=== PATIENT | female | born 1995 | race African-American/Black ===

== ENCOUNTER 2016-10-15 16:39 | Emergency (ER) | payer MEDICAID ==
[2016-10-15] MEDS ORDERED: IBUPROFEN 800 MG TABLET PO ONE (17:22)
--- NOTE | 2016-10-15 17:23 | ER Document Report ---
HPI - HPI Patient complains to provider of: hand injury Onset: This morning Onset/Duration: Sudden Quality of pain: Sharp Pain Level: 5 Context: Patient states that she punched a wall today with her right hand. Patient complains of right hand and wrist pain since then. Patient is right-hand dominant. Associated Symptoms: Other - Right hand injury Exacerbated by: Movement Relieved by: Denies Similar symptoms previously: No Recently seen / treated by doctor: No - ROS ROS below otherwise negative: Yes Systems Reviewed and Negative: Yes All other systems reviewed and negative - NEURO Neurology: DENIES: Weakness - REPRODUCTIVE Reproductive: DENIES: : - MUSCULOSKELETAL Musculoskeletal: REPORTS: Extremity pain - Right hand and wrist tendernes - DERM Skin Color: Normal Skin Problems: None Past Medical History - General Information source: Patient - Social History Smoking Status: Never Smoker Frequency of alcohol use: None Drug Abuse: None Occupation: [employer] Family History: Hypertension, Other - lupus Patient has suicidal ideation: No Patient has homicidal ideation: No - Medical History Medical History: Negative Renal/ Medical History: Denies: Hx Peritoneal Dialysis Surgical Hx: Negative - Immunizations Immunizations up to date: Yes Hx Diphtheria, Pertussis, Tetanus Vaccination: Yes Vertical Provider Document - CONSTITUTIONAL Agree With Documented VS: Yes Exam Limitations: No Limitations General Appearance: WD/WN, No Apparent Distress - INFECTION CONTROL TRAVEL OUTSIDE OF THE [place] IN LAST 30 DAYS: No - HEENT HEENT: Atraumatic, Normocephalic - NECK Neck: Normal Inspection - RESPIRATORY Respiratory: No Respiratory Distress O2 Sat by Pulse Oximetry: 96 - CARDIOVASCULAR Pulses: Normal: Radial - MUSCULOSKELETAL/EXTREMETIES Musculoskeletal/Extremeties: MAEW, Tender - Tenderness over right second through fifth metacarpals, no deformity noted. Patient with generalized right wrist tenderness, No Edema. negative: Eccymosis - NEURO Level of Consciousness: Awake, Alert, Appropriate Motor/Sensory: No Motor Deficit - DERM Integumentary: Warm, Dry, No Rash Course - Vital Signs Vital signs: Temp Pulse Resp BP Pulse Ox 98.7 F 16 L 16 107/77 96 10/15/16 16:42 10/15/16 16:42 10/15/16 16:42 10/15/16 16:42 10/15/16 16:42 - Diagnostic Test Radiology reviewed: Reports reviewed Procedures - Immobilization Right Wrist Pre-Proc Neuro Vasc Exam: Normal Immobilizer type: Cock-up Performed by: PCT Post-Proc Neuro Vasc Exam: Normal Alignment checked and good: Yes Discharge - Discharge Clinical Impression: Sprain of hand, right Qualifiers: Encounter type: initial encounter Qualified Code(s): S63.91XA - Sprain of unspecified part of right wrist and hand, initial encounter Sprain of wrist, right Qualifiers: Encounter type: initial encounter Qualified Code(s): S63.501A - Unspecified sprain of right wrist, initial encounter Condition: Stable Disposition: HOME, SELF-CARE Instructions: Sprain ([facility]), Wrist Sprain ([facility]), Ice & Elevation ([facility]), Oral Narcotic Medication ([facility]), Temporary Splint ([facility]) Additional Instructions: Return immediately for any new or worsening symptoms Followup with your primary care provider, call tomorrow to make a followup appointment Follow up with orthopedic Dr. for any continued pain or problems Prescriptions: Acetaminophen with Codeine [Acetaminophen-Cod #3 Tablet] 1 each PO Q6 PRN #15 tablet PRN Reason: Forms: Return to Work Referrals: AUSTIN DOMINGUEZ MD [Primary Care Provider] - Follow up as needed [facility] [Provider Group] - Follow up as needed
[2016-10-15 18:40] VITALS: BP 114/60
== END 2016-10-15 18:39 | disposition home or self-care (01) ==
LOC: ER 16:39
DX: S63.91XA Sprain of unspecified part of right wrist and hand, initial encounter (principal); W22.09XA Striking against other stationary object, initial encounter
CPT/HCPCS: 99283; 73130; L3984; J3490

== ENCOUNTER 2016-12-07 09:43 | Emergency (ER) | payer MEDICAID ==
[2016-12-07 09:51] VITALS: BP 114/73
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
--- NOTE | 2016-12-07 10:38 | RADIOLOGY REPORT (SQ) ---
EXAM DESCRIPTION: RIBS LEFT W/PA CHEST COMPLETED DATE/TIME: 12/07/2016 10:29 am REASON FOR STUDY: injury COMPARISON: None. TECHNIQUE: Frontal view of the chest and additional views of the left ribs acquired. NUMBER OF VIEWS: Three views LIMITATIONS: None FINDINGS: FRONTAL CXR: No acute consolidations or pleural effusions. No pneumothorax is seen. RIBS: No rib fracture dislocation is identified. OTHER: No other significant finding. IMPRESSION: NO PNEUMOTHORAX. NO DISPLACED RIB FRACTURES. COMMENT: SITE OF TRAUMA/COMPLAINT MARKED/STAMP COMPLETED: Yes TECHNICAL DOCUMENTATION: JOB ID: [id number] [employer]- All Rights Reserved
== END 2016-12-07 10:47 | disposition home or self-care (01) ==
LOC: ER 09:43
DX: S20.212A Contusion of left front wall of thorax, initial encounter (principal); R07.81 Pleurodynia; R06.02 Shortness of breath; X58.XXXA Exposure to other specified factors, initial encounter
CPT/HCPCS: 99283

== ENCOUNTER 2017-06-03 15:09 | Emergency (ER) | payer MEDICAID ==
[2017-06-03 15:25] VITALS: BP 113/73
== END 2017-06-03 16:42 | disposition left against medical advice (07) ==
LOC: ER 15:09
DX: Z53.21 Procedure and treatment not carried out due to patient leaving prior to being seen by health care provider (principal)

== ENCOUNTER 2018-01-07 14:12 | Emergency (ER) | payer SELFPAY ==
[2018-01-07] MEDS ORDERED: NORMAL SALINE 1000 ML 1,000 ML IV ONE (14:44)
[2018-01-07] MEDS ORDERED: ACETAMINOPHEN 325 MG TABLET PO ONE (14:46)
--- NOTE | 2018-01-07 14:46 | ER Document Report ---
ED Medical Screen (RME) - General Chief Complaint: Flu Symptoms Stated Complaint: COUGH Time Seen by Provider: 01/07/18 14:26 Mode of Arrival: Ambulatory Information source: Patient Notes: Patient presents complaining of body aches sore throat and left lateral side pain that started yesterday. Patient denies any cough or cold symptoms. Patient denies any vomiting or diarrhea. Patient denies any urinary complaints. Patient is currently 27 weeks . Patient denies vaginal bleeding or discharge. Patient does report being told she has placenta previa. Patient has not established care since relocating to this area 2 weeks ago. I have greeted and performed a rapid initial assessment of this patient. A comprehensive ED assessment and evaluation of the patient, analysis of test results and completion of the medical decision making process will be conducted by additional ED providers. TRAVEL OUTSIDE OF THE [place] IN LAST 30 DAYS: No - Related Data Allergies/Adverse Reactions: No Known Allergies Allergy (Verified 01/07/18 14:15) Past Medical History - Social History Chew tobacco use (# tins/day): No Frequency of alcohol use: None Drug Abuse: None - Past Medical History Cardiac Medical History: Reports: Hx Hypertension Renal/ Medical History: Denies: Hx Peritoneal Dialysis - Immunizations Immunizations up to date: Yes Hx Diphtheria, Pertussis, Tetanus Vaccination: Yes Physical Exam - Vital signs Vitals: Temp Pulse Resp BP Pulse Ox 99.6 F 126 H 18 118/60 98 01/07/18 14:23 01/07/18 14:23 01/07/18 14:23 01/07/18 14:23 01/07/18 14:23 - Cardiovascular Rhythm: Tachycardia Heart sounds: S1 appreciated, S2 appreciated Murmur: No Course - Vital Signs Vital signs: Temp Pulse Resp BP Pulse Ox 99.6 F 126 H 18 118/60 98 01/07/18 14:23 01/07/18 14:23 01/07/18 14:23 01/07/18 14:23 01/07/18 14:23
[2018-01-07 15:06] LABS: APPEARANCE,URINE CLEAR; BILIRUBIN,URINE NEGATIVE (NEGATIVE); COLOR,URINE YELLOW; GLUCOSE, URINE NEGATIVE (NEGATIVE); KETONES,URINE 80 mg/dL (NEGATIVE); LEUKOCYTE ESTERASE,URINE NEGATIVE (NEGATIVE); NITRITE,URINE NEGATIVE (NEGATIVE); PROTEIN,URINE NEGATIVE (NEGATIVE); URINE SPECIFIC GRAVITY 1.021
--- NOTE | 2018-01-07 15:13 | ER Document Report ---
ED Flu Like - General Chief Complaint: Flu Symptoms Stated Complaint: COUGH Time Seen by Provider: 01/07/18 14:26 Mode of Arrival: Ambulatory Information source: Patient Notes: Chief complaint: Flulike symptoms History of complain:( obtained from----patient) 22 years old female who is 27 weeks , second , presents today since this morning having generalized body aches and pains so throat and runny nose. Denies any headache earache. Denies any neck pain neck stiffness. Denies any cough shortness of breath. Denies any nausea vomiting. Denies any dysuria frequency or urgency. Denies any diarrhea. Onset: As above Duration: Gradual Severity: Moderate Quality: Sharp Context: As above Exacerbating factor and relieving factors: As above REVIEW OF SYSTEMS: CONSTITUTIONAL : Denies fever, chills, or sweats. Denies recent illness. EENT: Denies eye, ear, throat, or mouth pain or symptoms. Denies nasal or sinus congestion or discharge. Denies throat, tongue, or mouth swelling or difficulty swallowing. CARDIOVASCULAR: Denies chest pain. Denies palpitations or racing or irregular heart beat. Denies ankle edema. RESPIRATORY: Denies cough, cold, or chest congestion. Denies shortness of breath, difficulty breathing, or wheezing. GASTROINTESTINAL: Denies distention. Denies nausea, vomiting, or diarrhea. Denies blood in vomitus, stools, or per rectum. Denies black, tarry stools. Denies constipation. GENITOURINARY: Denies difficulty urinating, painful urination, burning, frequency, blood in urine, or discharge. FEMALE GENITOURINARY: Denies vaginal bleeding, heavy or abnormal periods, irregular periods. Denies vaginal discharge or odor. MUSCULOSKELETAL: Denies back or neck pain or stiffness. Denies joint pain or swelling. SKIN: Denies rash, lesions or sores. HEMATOLOGIC : Denies easy bruising or bleeding. LYMPHATIC: Denies swollen, enlarged glands. NEUROLOGICAL: Denies confusion or altered mental status. Denies passing out or loss of consciousness. Denies dizziness or lightheadedness. Denies headache. Denies weakness or paralysis or loss of use of either side. Denies problems with gait or speech. Denies sensory loss, numbness, or tingling. Denies seizures. PSYCHIATRIC: Denies anxiety or stress. Denies depression, suicidal ideation, or homicidal ideation. ALL OTHER SYSTEMS REVIEWED AND NEGATIVE. PHYSICAL EXAMINATION: GENERAL: Well-appearing, well-nourished and in no acute distress. HEAD: Atraumatic, normocephalic. EYES: Pupils equal round and reactive to light, extraocular movements intact, conjunctiva are normal. ENT: Nares patent, oropharynx clear without exudates. Moist mucous membranes. NECK: Normal range of motion, supple without lymphadenopathy LUNGS: Breath sounds clear to auscultation bilaterally and equal. No wheezes rales or rhonchi. HEART: Regular rate and rhythm without murmurs ABDOMEN: Soft, nontender, nondistended abdomen. No guarding, no rebound. No masses appreciated. Examination of genitals-deferred Musculoskeletal: Normal range of motion, no pitting or edema. No cyanosis. NEUROLOGICAL: Cranial nerves grossly intact. Normal speech, normal gait. Normal sensory, motor exams PSYCH: Normal mood, normal affect. SKIN: Warm, Dry, normal turgor, no rashes or lesions noted. Dictation was performed using [email or web address] voice recognition software TRAVEL OUTSIDE OF THE [place] IN LAST 30 DAYS: No - HPI Patient complains to provider of: Dictated - Related Data Allergies/Adverse Reactions: No Known Allergies Allergy (Verified 01/07/18 14:15) Past Medical History - General Information source: Patient - Social History Smoking Status: Never Smoker Cigarette use (# per day): No Chew tobacco use (# tins/day): No Smoking Education Provided: No Frequency of alcohol use: None Drug Abuse: None Lives with: Family Family History: Reviewed & Not Pertinent, Hypertension, Other - lupus Patient has suicidal ideation: No Patient has homicidal ideation: No - Past Medical History Cardiac Medical History: Reports: Hx Hypertension Renal/ Medical History: Denies: Hx Peritoneal Dialysis - Immunizations Immunizations up to date: Yes Hx Diphtheria, Pertussis, Tetanus Vaccination: Yes Review of Systems - Review of Systems Notes: Dictated Physical Exam - Vital signs Vitals: Temp Pulse Resp BP Pulse Ox 99.6 F 126 H 18 118/60 98 01/07/18 14:23 01/07/18 14:23 01/07/18 14:23 01/07/18 14:23 01/07/18 14:23 - Notes Notes: Dictated Course - Re-evaluation Re-evalutation: 01/07/18 16:11 Given IV fluid 01/07/18 16:11 With clinical improvement she was discharged home - Vital Signs Vital signs: Temp Pulse Resp BP Pulse Ox 99.6 F 126 H 18 118/60 98 01/07/18 14:23 01/07/18 14:23 01/07/18 14:23 01/07/18 14:23 01/07/18 14:23 - Laboratory Result Diagrams: 01/07/18 15:15 01/07/18 15:15 Laboratory results interpreted by me: 01/07/18 01/07/18 01/07/18 14:55 15:15 15:15 Hgb 11.6 L Hct 33.4 L Seg Neutrophils % 86.7 H Lymphocytes % 5.1 L Absolute Lymphocytes 0.3 L Sodium 136.6 L Carbon Dioxide 21 L Creatinine 0.45 L Glucose 68 L Albumin 3.4 L Urine Ketones 80 H Urine Urobilinogen 2.0 H Urine Ascorbic Acid 40 H Discharge - Discharge Clinical Impression: Viral syndrome, Sore throat (viral), Dehydration Condition: Fair Disposition: HOME, SELF-CARE Instructions: Acetaminophen, Fever ([facility]), Dehydration ([facility])
[2018-01-07 15:34] LABS: ABSOLUTE LYMPHOCYTES (AUTO) 0.3 10^3/uL (0.5-4.7); ABSOLUTE MONOCYTES (AUTO) 0.5 10^3/uL (0.1-1.4); ABSOLUTE NEUT (AUTO) 5.6 10^3/uL (1.7-8.2); BASOPHILS % (AUTO) 0.4 % (0-2); EOSINOPHILS % (AUTO) 0.2 % (0-6); HEMATOCRIT 33.4 % (36.0-47.0); HEMOGLOBIN 11.6 g/dL (12.0-15.5); LYMPHOCYTES % (AUTO) 5.1 % (13-45); MEAN CORPUSCULAR HEMOGLOBIN 30.7 pg (27.0-33.4); MEAN CORPUSCULAR HGB CONC 34.7 g/dL (32.0-36.0); MEAN CORPUSCULAR VOLUME 89 fl (80-97); MONOCYTES % (AUTO) 7.6 % (3-13); PLATELET COUNT 249 10^3/uL (150-450); RED BLOOD COUNT 3.77 10^6/uL (3.72-5.28); RED CELL DISTRIBUTION WIDTH 13.6 % (11.5-14.0); SEGMENTED NEUTROPHILS % (AUTO) 86.7 % (42-78); TOTAL CELLS COUNTED % (AUTO) 100 %; WHITE BLOOD COUNT 6.5 10^3/uL (4.0-10.5)
[2018-01-07 16:00] LABS: ALANINE AMINOTRANSFERASE 41 U/L (9-52); ALBUMIN 3.4 g/dL (3.5-5.0); ALKALINE PHOSPHATASE 64 U/L (38-126); ANION GAP 12 (5-19); ASPARTATE AMINO TRANSFERASE 32 U/L (14-36); BILIRUBIN,DIRECT 0.3 mg/dL (0.0-0.4); BILIRUBIN,TOTAL 0.3 mg/dL (0.2-1.3); BLOOD UREA NITROGEN 7 mg/dL (7-20); CALCIUM 8.8 mg/dL (8.4-10.2); CARBON DIOXIDE 21 mmol/L (22-30); CHLORIDE 104 mmol/L (98-107); GLUCOSE 68 mg/dL (75-110); POTASSIUM 3.9 mmol/L (3.6-5.0); SODIUM 136.6 mmol/L (137-145); TOTAL PROTEIN 6.8 g/dL (6.3-8.2)
[2018-01-07 16:21] VITALS: BP 108/61
== END 2018-01-07 16:21 | disposition home or self-care (01) ==
LOC: ER 14:12
DX: O99.512 Diseases of the respiratory system complicating pregnancy, second trimester (principal); J02.8 Acute pharyngitis due to other specified organisms; B97.89 Other viral agents as the cause of diseases classified elsewhere; O26.892 Other specified pregnancy related conditions, second trimester; R05 Cough; R09.89 Other specified symptoms and signs involving the circulatory and respiratory systems; O99.282 Endocrine, nutritional and metabolic diseases complicating pregnancy, second trimester; E86.0 Dehydration; O16.2 Unspecified maternal hypertension, second trimester; Z3A.27 27 weeks gestation of pregnancy
CPT/HCPCS: 99283; 96360; 36415; 87070; 87880; 85025; 80053; 81001; J7030

== ENCOUNTER 2018-04-12 18:07 | Inpatient (IN) | payer MEDICAID ==
[2018-04-12 18:43] LABS: APPEARANCE,URINE SLIGHTLY-CLOUDY; BILIRUBIN,URINE NEGATIVE (NEGATIVE); COLOR,URINE YELLOW; GLUCOSE, URINE NEGATIVE (NEGATIVE); KETONES,URINE NEGATIVE (NEGATIVE); LEUKOCYTE ESTERASE,URINE TRACE (NEGATIVE); NITRITE,URINE NEGATIVE (NEGATIVE); PROTEIN,URINE 30 mg/dL (NEGATIVE); URINE SPECIFIC GRAVITY 1.023
[2018-04-12 19:03] LABS: URINE AMPHETAMINES SCREEN NEGATIVE; URINE BARBITURATES SCREEN NEGATIVE; URINE BENZODIAZEPINES SCREEN NEGATIVE; URINE COCAINE SCREEN NEGATIVE; URINE MARIJUANA (THC) SCREEN NEGATIVE; URINE METHADONE SCREEN NEGATIVE; URINE PHENCYCLIDINE SCREEN NEGATIVE
[2018-04-12] MEDS ORDERED: RINGERS SOLUTION,LACTATED 1,000 ML IV PRN (19:36)
[2018-04-12] MEDS ORDERED: FENTANYL CITRATE INJ/PF 100 MCG/2 ML AMPUL ONE (20:00)
[2018-04-12] MEDS ORDERED: EPHEDRINE SULFATE INJ 50 MG/1 ML AMPULE ONE (20:00)
[2018-04-12] MEDS ORDERED: PHENYLEPHRINE HCL INJ/PF 10 MG/1 ML SDV ONE (20:00)
[2018-04-12] MEDS ORDERED: FENTANYL/BUPIVACAINE/NS/PF 300 MCG/150 ML RTUINJ EPI ONE (20:01)
[2018-04-12] MEDS ORDERED: BUPIVACAINE HCL 0.5 % INJ/PF 30 ML SDV ONE (20:01)
[2018-04-12 20:18] LABS: ABSOLUTE LYMPHOCYTES (AUTO) 1.3 10^3/uL (0.5-4.7); ABSOLUTE MONOCYTES (AUTO) 0.8 10^3/uL (0.1-1.4); ABSOLUTE NEUT (AUTO) 4.3 10^3/uL (1.7-8.2); BASOPHILS % (AUTO) 0.6 % (0-2); EOSINOPHILS % (AUTO) 0.4 % (0-6); HEMATOCRIT 38.5 % (36.0-47.0); HEMOGLOBIN 13.1 g/dL (12.0-15.5); MEAN CORPUSCULAR HGB CONC 33.9 g/dL (32.0-36.0); MEAN CORPUSCULAR VOLUME 89 fl (80-97); MONOCYTES % (AUTO) 12.2 % (3-13); PLATELET COUNT 253 10^3/uL (150-450); RED BLOOD COUNT 4.35 10^6/uL (3.72-5.28); RED CELL DISTRIBUTION WIDTH 14.3 % (11.5-14.0); SEGMENTED NEUTROPHILS % (AUTO) 66.8 % (42-78); TOTAL CELLS COUNTED % (AUTO) 100 %; WHITE BLOOD COUNT 6.4 10^3/uL (4.0-10.5)
[2018-04-12 20:32] LABS: ALANINE AMINOTRANSFERASE 27 U/L (9-52); ALBUMIN 3.5 g/dL (3.5-5.0); ALKALINE PHOSPHATASE 95 U/L (38-126); ANION GAP 6 (5-19); ASPARTATE AMINO TRANSFERASE 14 U/L (14-36); BILIRUBIN,DIRECT 0.2 mg/dL (0.0-0.4); BILIRUBIN,TOTAL 0.5 mg/dL (0.2-1.3); BLOOD UREA NITROGEN 11 mg/dL (7-20); CALCIUM 9.9 mg/dL (8.4-10.2); CARBON DIOXIDE 26 mmol/L (22-30); CHLORIDE 105 mmol/L (98-107); GLUCOSE 88 mg/dL (75-110); POTASSIUM 4.9 mmol/L (3.6-5.0); SODIUM 137.2 mmol/L (137-145); TOTAL PROTEIN 6.9 g/dL (6.3-8.2)
[2018-04-12] MEDS ORDERED: LIDOCAINE 1% INJ-PF (10 MG/ML) 30 ML SDV ONE (22:46)
[2018-04-12] MEDS ORDERED: OXYTOCIN/NORMAL SALINE 20 UNIT/1,000 ML RTUINJ ONE (22:46)
[2018-04-12] MEDS ORDERED: MISOPROSTOL 0.2 MG TABLET ONE (22:46)
[2018-04-12] MEDS ORDERED: OXYTOCIN 10 UNIT/ML VIAL ONE (22:46)
--- NOTE | 2018-04-12 23:01 | Admission Physical ---
Datetime Report Generated by CPN: 04/12/2018 23:00 CURRENT ADMISSION Chief Complaint: Uterine Contractions Indication for Induction: Not Applicable Admit Impression : Term, Intrauterine ; Active Labor; Intact Membranes Admit Plan: Admit to Unit; Initiate Labor Protocol ALLERGIES Medication Allergies: No Medication Allergies: No Known Allergies (01/07/2018) OBSTETRICAL HISTORY EDC: 04/08/2018 00:00 : 2 Para: 1 Term: 1 : 0 SAB: 0 IAB: 0 Ectopic: 0 Livin Cesareans: 0 VBACs: 0 Multiple Births: 0 Gestational Diabetes: No Rh Sensitization: No Incompetent Cervix: No KINDRA: No Infertility: No ART Treatment: No Uterine Anomaly: No IUGR: No Hx Previous C/S: No Macrosomia: No Hx Loss/Stillborn: No PIH: No Hx : No Placenta Previa/Abruption: No Depression/PP Depression: No PTL/PROM: No Post Hemorrhage: No Current Procedures: Ultrasound Obstetrical History Comments: G1- G2- current SEE RECORDS Alcohol: No Marijuana : No Cocaine: No Other Illicit Drugs: No Cigarettes: Never Smoker. 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: No Heart Disease: No Hosp/Surgery: No Autoimmune Disorder: No Anesthetic Complications: No Kidney Disease: No Abnormal Pap Smear: No Neuro/Epilepsy: No Psychiatric Disorders: No Other Medical Diseases: No Hepatitis/Liver Disease: No Significant Family History: No Varicosities/Phlebitis: No Trauma/Violence : No Thyroid Dysfunction: No INFECTIOUS HISTORY Gonorrhea: No Genital Herpes: No Chlamydia: Yes Tuberculosis: No Syphilis: No Hepatitis: No HIV/AIDS Exposure: No Rash or Viral Illness: No HPV: No Infectious History Comments: PHYSICAL EXAM General: Normal HEENT: Normal Neurologic: Normal Heart: Normal Lungs: Normal Abdomen: Normal Genitourinary Exam: Normal Extremities: Normal Pelvic Type: Adequate Vital Signs: Reviewed; Within Normal Limits VAGINAL EXAM Dilatation: 10 Effacement: 100 Station: 0 Contraction Comments: q 3 min MEMBRANES Membranes: Ruptured FETUS A EGA: 40.4 Monitoring: External US FHR- Baseline: 135 Variability: Moderate 6-25bpm Accelerations: 15X15 Decelerations: None Presentation: Vertex PLANS FOR LABOR AND DELIVERY Labor and Delivery: None Pain Management: Epidural Feeding Preference: Breast Benefit of Breast Feed Discussed: Yes Circumcision: Yes INFORMED CONSENT Signature: with User ID: [email or web address]
[2018-04-13] MEDS ORDERED: OXYTOCIN/NORMAL SALINE 20 UNIT/1,000 ML RTUINJ IV PRN (00:25)
[2018-04-13] MEDS ORDERED: HYDROCODONE/ACETAMINOPHEN 5-325 MG TABLET PO PRN (00:25)
[2018-04-13] MEDS ORDERED: MEASLES,MUMPS&RUBELLA VACC/PF 0.5 ML VIAL SUBCUT PRN (00:25)
[2018-04-13] MEDS ORDERED: BENZOCAINE/MENTHOL AEROSOL SPRAY 56 ML TOP PRN (00:25)
[2018-04-13] MEDS ORDERED: DIBUCAINE 1% OINTMENT 28 GM TP PRN (00:25)
[2018-04-13] MEDS ORDERED: ZOLPIDEM TARTRATE 5 MG TABLET PO PRN (00:25)
[2018-04-13] MEDS ORDERED: DIPH/PERTUSS(ACELL)/TETANUS VAC/PF 0.5 ML SYR (>=10YO) IM PRN (00:25)
[2018-04-13] MEDS ORDERED: DIPHENHYDRAMINE HCL 25 MG CAPSULE PO PRN (00:32)
[2018-04-13] MEDS ORDERED: PROMETHAZINE HCL 25 MG TABLET PO PRN (00:32)
[2018-04-13] MEDS ORDERED: ONDANSETRON HCL 8 MG TABLET PO PRN (00:32)
[2018-04-13] MEDS: ACETAMINOPHEN WITH CODEINE #3 TABLET PO PRN ×4 (02:38→23:46)
[2018-04-13] MEDS: IBUPROFEN 800 MG TABLET PO SCH ×3 (05:45→21:08)
--- NOTE | 2018-04-13 09:37 | PDOC PROGRESS REPORT ---
Subjective-OB Progress Note for:: 04/13/18 Subjective: pp Day #1, doing well, no complaints, , O+, rubella Immune Physical Exam (OB) Vital Signs: Temp Pulse Resp BP Pulse Ox 98.1 F 73 18 108/49 L 99 04/13/18 07:55 04/13/18 07:55 04/13/18 07:55 04/13/18 07:55 04/13/18 07:55 Intake & Output 04/12/18 04/13/18 04/14/18 06:59 06:59 06:59 Weight 75.7 kg - General General Appearance: Appears well, Alert In distress: None - PIH/Pre-Eclampsia DTR's: 2 + Clonus: Negative Headache: Absent Epigastric Pain: No Visual Changes: No - Lochia Lochia Amount: Scant < 10 ml Lochia Color: Rubra/Red - Abdomen Description: Soft, Flat Hernia Present: No Fundal Description: Firm, Midline Fundal Height: u/u - u/2 - Respiratory Respiratory Status: No respiratory distress - Abdominal Inspection: Normal Distension: No distension - Genitourinary Genitourinary Note: voiding - Extremities Upper extremity: Normal inspection Lower extremities: Normal inspection - Neurological Cognition: Normal Orientation: AAOx4 - Psychological Associated symptoms: Normal affect, Normal mood - Skin Skin Temperature: Warm Skin Moisture: Dry Skin Color: Normal Objective-Diagnostic Laboratory: 04/12/18 20:05 04/12/18 20:05 04/12/18 04/12/18 04/12/18 18:12 20:05 20:05 WBC 6.4 RBC 4.35 Hgb 13.1 Hct 38.5 MCV 89 MCH 30.0 MCHC 33.9 RDW 14.3 H Plt Count 253 Seg Neutrophils % 66.8 Lymphocytes % 20.0 Monocytes % 12.2 Eosinophils % 0.4 Basophils % 0.6 Absolute Neutrophils 4.3 Absolute Lymphocytes 1.3 Absolute Monocytes 0.8 Absolute Eosinophils 0.0 Absolute Basophils 0.0 Sodium 137.2 Potassium 4.9 Chloride 105 Carbon Dioxide 26 Anion Gap 6 BUN 11 Creatinine 0.73 Est GFR ( Amer) > 60 Est GFR (Non-Af Amer) > 60 Glucose 88 Calcium 9.9 Total Bilirubin 0.5 AST 14 ALT 27 Alkaline Phosphatase 95 Total Protein 6.9 Albumin 3.5 Urine Color YELLOW Urine Appearance SLIGHTLY-CLOUDY Urine pH 6.0 Ur Specific Drain 1.023 Urine Protein 30 H Urine Glucose (UA) NEGATIVE Urine Ketones NEGATIVE Urine Blood NEGATIVE Urine Nitrite NEGATIVE Ur Leukocyte Esterase TRACE H Blood Type Antibody Screen 04/12/18 20:05 WBC RBC Hgb Hct MCV MCH MCHC RDW Plt Count Seg Neutrophils % Lymphocytes % Monocytes % Eosinophils % Basophils % Absolute Neutrophils Absolute Lymphocytes Absolute Monocytes Absolute Eosinophils Absolute Basophils Sodium Potassium Chloride Carbon Dioxide Anion Gap BUN Creatinine Est GFR ( Amer) Est GFR (Non-Af Amer) Glucose Calcium Total Bilirubin AST ALT Alkaline Phosphatase Total Protein Albumin Urine Color Urine Appearance Urine pH Ur Specific Drain Urine Protein Urine Glucose (UA) Urine Ketones Urine Blood Urine Nitrite Ur Leukocyte Esterase Blood Type O POSITIVE Antibody Screen NEGATIVE Assessment and Plan(PN) - Assessment and Plan (1) (normal spontaneous vaginal delivery) Is this a current diagnosis for this admission?: Yes (2) Normal course Is this a current diagnosis for this admission?: Yes - Time Spent with Patient Time with patient: Less than 15 minutes Medications reviewed and adjusted accordingly: Yes - Disposition Anticipated Discharge: Home Within: within 24 hours
[2018-04-13] MEDS: SENNOSIDES/DOCUSATE 8.6-50 MG 1 EACH TABLET PO SCH (10:21)
[2018-04-13] MEDS: PRENATAL VITAMIN W DHA CAPSULE PO SCH (10:21)
[2018-04-13] MEDS: DOCUSATE SODIUM 100 MG CAPSULE PO SCH ×2 (10:21→17:33)
[2018-04-13] MEDS: FERROUS SULFATE 325 MG TABLET PO SCH ×2 (10:22→17:33)
[2018-04-14] MEDS: IBUPROFEN 800 MG TABLET PO SCH ×2 (05:18→14:29)
[2018-04-14 07:49] LABS: HEMATOCRIT 36.9 % (36.0-47.0); HEMOGLOBIN 12.6 g/dL (12.0-15.5); MEAN CORPUSCULAR HEMOGLOBIN 30.1 pg (27.0-33.4); MEAN CORPUSCULAR HGB CONC 34.2 g/dL (32.0-36.0); MEAN CORPUSCULAR VOLUME 88 fl (80-97); PLATELET COUNT 205 10^3/uL (150-450); RED BLOOD COUNT 4.19 10^6/uL (3.72-5.28); RED CELL DISTRIBUTION WIDTH 14.6 % (11.5-14.0)
[2018-04-14 08:17] VITALS: BP 108/58
[2018-04-14] MEDS: ACETAMINOPHEN WITH CODEINE #3 TABLET PO PRN (08:45)
[2018-04-14] MEDS: PRENATAL VITAMIN W DHA CAPSULE PO SCH (09:20)
[2018-04-14] MEDS: SENNOSIDES/DOCUSATE 8.6-50 MG 1 EACH TABLET PO SCH (09:20)
[2018-04-14] MEDS: FERROUS SULFATE 325 MG TABLET PO SCH ×2 (09:20→17:20)
[2018-04-14] MEDS: DOCUSATE SODIUM 100 MG CAPSULE PO SCH ×2 (09:20→17:20)
--- NOTE | 2018-04-14 11:10 | PDOC DISCHARGE SUMMARY ---
Final Diagnosis Discharge Date: 04/14/18 - Final Diagnosis (1) Perineal laceration during delivery Is this a current diagnosis for this admission?: Yes (2) (normal spontaneous vaginal delivery) Is this a current diagnosis for this admission?: Yes (3) Normal course Is this a current diagnosis for this admission?: Yes (4) High vaginal laceration during delivery Is this a current diagnosis for this admission?: Yes Discharge Data - Discharge Medication Prescriptions: Ibuprofen [Motrin 800 mg Tablet] 800 mg PO Q8HP PRN #60 tablet PRN Reason: Abdominal Cramping Vit/Dha [ Multi + Dha Capsule] 1 cap PO DAILY #90 capsule Home Medications: Ibuprofen [Motrin 800 mg Tablet] 800 mg PO Q8HP PRN #60 tablet 04/14/18 Vit/Dha [ Multi + Dha Capsule] 1 cap PO DAILY #90 capsule 04/14 Reason(s) for Admission: Onset of Labor Procedures: NST, Ultrasound Intrapartum Procedure(s): Spontaneous Vaginal Delivery Complication(s): Laceration-Vaginal, Laceration-Perineal Laceration-Degree: 1st - Diagnosis Test Laboratory: Temp Pulse Resp BP Pulse Ox 98.9 F 72 16 108/58 L 98 04/14/18 07:58 04/14/18 07:58 04/14/18 07:58 04/14/18 07:39 04/14/18 07:58 04/12/18 04/12/18 04/14/18 18:12 20:05 07:16 RBC 4.35 4.19 Hgb 13.1 12.6 Hct 38.5 36.9 Urine Opiates Screen NEGATIVE - Discharge information/Instructions Discharge Activity: Activity As Tolerated, Balance Activity w/Rest, No Lifting Over 10 Pounds, Pelvic Rest, Slowly Increase Activity, No tub bath, Walk Frequently Discharge Diet: Regular Disposition: HOME, SELF-CARE Follow up with: [facility] in: 4, Weeks
--- NOTE | 2018-04-21 14:08 | Delivery Summary ---
Del Sum A-C Datetime Report Generated by CPN: 04/21/2018 14:07 DELIVERY PERSONNEL DELIVERY PERSONNEL: [id number] Delivery Doctor:: Abdelrahman Finney MD Labor and Delivery Nurse:: Ro Gramajo RN Labor and Delivery Nurse:: Shy Sotelo RN Computer Systems Software Engineer/LIVERY CAR DRIVER: Shana Ryan, RAVELER MATERNAL INFORMATION Delivery Anesthesia: Epidural Medications During Delivery: Lidocaine Medications After Delivery: Pitocin Bolus-Please Comment Estimated Blood Loss (ml): 100 Maternal Complications: None Provider Comments: Pt C_P. Head delivered OA then nuchal reduced. Anterior and posterior shoulder delivered followed by rest of body. Baby placed on mom's abdomen. After 1 min, cord clamped x 2 and cut by FOB. Placenta delivered intact with 3VC. Laceration repaired as above. LABOR SUMMARY EDC: 04/08/2018 00:00 No. Babies in Womb: 1 Attempted: No Labor Anesthesia: Epidural LABOR INFORMATION Reason for Induction: Not Applicable Onset of Labor: 04/12/2018 19:25 Complete Dilatation: 04/12/2018 23:35 Group B Beta Strep: negative Antibiotics # of Doses: 0 Antibiotics Time of Last Dose: n/a Steroids Given: None Steroids Given: None Reason Steroids Not Administered: Not Applicable Reason Steroids Not Administered: Not Applicable MEMBRANES Membranes Rupture Method: Spontaneous Rupture of Membranes: 04/12/2018 22:36 Length of Rupture (hr): 1.15 Amniotic Fluid Color: Clear Amniotic Fluid Amount: Moderate Amniotic Fluid Odor: Normal STAGES OF LABOR Stage 1 hr: 4 Stage 1 min: 10 Stage 2 hr: 0 Stage 2 min: 10 Stage 3 hr: 24 Stage 3 min: 6 Total Time in Labor hr: 28 Total Time in Labor min: 26 VAGINAL DELIVERY Episiotomy: None Laceration #1: Vaginal Laceration Extension #1: N/A Laceration Repair: Yes Laceration Repair Note: Right vaginal/perineal skin reapproxiated in interrupted fashion with 3.0 Vicryl Sponge Count Correct: N/A Sponge Count Correct: N/A Sharps Count Correct: Yes Sharps Count Correct: N/A CSECTION DELIVERY Primary Indication: N/A Secondary Indication: N/A CSection Incidence: N/A Labor: N/A Elective: N/A CSection Incision: N/A BABY A INFORMATION Infant Delivery Date/Time: 04/12/2018 23:45 Method of Delivery: Vaginal Method of Delivery: Vaginal Born in Route : No : N/A Forceps: N/A Vacuum Extraction: N/A Shoulder Dystocia : No PRESENTATION/POSITION BABY A Presentation: Cephalic Cephalic Presentation: Vertex Vertex Position: occipital anterior Vertex Position: Left Occipital Anterior Breech Presentation: N/A Breech Presentation: N/A PLACENTA INFORMATION BABY A Placenta Delivery Time : 04/13/2018 23:51 Placenta Method of Delivery: Spontaneous Placenta Method of Delivery: Spontaneous Placenta Method of Delivery: Spontaneous Placenta Status: Delivered Placenta Status: Delivered SCORES BABY A Heart Rate 1 min: >100 bpm Resp Effort 1 min: Good Cry Reflex Irritability 1 min: Cough or Sneeze or Pulls Away Muscle Tone 1 min: Active Motion Color 1 min: Body Blanca, Extremities Blue Resuscitation Effort 1 min: Tactile Stimulation SCORE 1 MIN: 9 Heart Rate 5 min: >100 bpm Resp Effort 5 min: Good Cry Reflex Irritability 5 min: Cough or Sneeze or Pulls Away Muscle Tone 5 min: Active Motion Color 5 min: Body Blanca, Extremities Blue SCORE 5 MIN: 9 INFORMATION BABY A Gestational Age at Delivery: 40.4 Gestational Status: Full Term- 39- 40.6 Weeks Infant Outcome : Liveborn Condition : Stable Sex: Male Infant Sex: Male IDENTIFICATION BABY A Verification Date/Time: 04/12/2018 23:55 ID Band Number: [id number] Mother's Name Verified: Yes Infant RN Verifying : Rox AbdulkadirNupur SWEET Additional Verifying Personnel: F. Washing ST (Annotations: Data stored by [facility] on behalf of user) CORD INFORMATION BABY A No. Cord Vessels: 3 Nuchal Cord : Around Neck x1, Loose Nuchal Cord- Other: true knot Cord Blood Taken: Yes-For Eval (Mom's Blood Type - or O+) Infant Suction: Mouth Suction: Mouth; Nose ASSESSMENT BABY A Complications: None Physical Findings at Delivery: Within Normal Limits Infant Respirations: Appears Normal Skin to Skin: Yes Housing Grant Analyst/ALS Called : No Infant Care By: Iraj Sotelo RN Transferred To: Remains with Mother SIGNATURES Signature: with User ID: [email or web address] : I was personally available for consultation and serving as supervising physician for the MLP.
== END 2018-04-14 18:05 | disposition home or self-care (01) | DRG 807 ==
LOC: LC 18:07 → LR 19:35 → 2S 04-13 01:50
PROVIDERS: ADMIT Obstetrics & Gynecology; ATTEND Obstetrics & Gynecology
PROC: 10E0XZZ Delivery of Products of Conception, External Approach (ICD-10-PCS; principal; 2018-04-12)
PROC: 0HQ9XZZ Repair Perineum Skin, External Approach (ICD-10-PCS; 2018-04-12)
PROC: 4A1HXCZ Monitoring of Products of Conception, Cardiac Rate, External Approach (ICD-10-PCS; 2018-04-12)
DX: O69.81X0 Labor and delivery complicated by cord around neck, without compression, not applicable or unspecified (principal); Z37.0 Single live birth; O69.2XX0 Labor and delivery complicated by other cord entanglement, with compression, not applicable or unspecified; O70.0 First degree perineal laceration during delivery; Z3A.40 40 weeks gestation of pregnancy
CPT/HCPCS: 36415; 59025; 80053; 80307; 81005; 85025; 85027; 86592; 86850; 86900; 86901; J2370; J2590; J3010; J3490

== ENCOUNTER 2018-05-27 10:47 | Emergency (ER) | payer MEDICAID ==
--- NOTE | 2018-05-27 12:05 | ER Document Report ---
HPI - HPI Time Seen by Provider: 05/27/18 11:27 Pain Level: 3 Notes: Patient is a 22-year-old female who presents to the emergency department with chief complaint of sore throat and bilateral eye drainage that started last night. She also reports a productive cough. Patient reports she has taken over -the-counter medications with minimal improvement. Patient concerned as she has a 6-week old with her and she wants to make sure she is not contagious. - EENT EENT: REPORTS: Sore Throat - reddend - CARDIOVASCULAR Cardiovascular: DENIES: Chest pain - GASTROINTESTINAL Gastrointestinal: DENIES: Abdominal Pain - REPRODUCTIVE Reproductive: DENIES: : Past Medical History - General Information source: Patient - Social History Smoking Status: Never Smoker Frequency of alcohol use: None Drug Abuse: None Family History: Reviewed & Not Pertinent, Hypertension, Other - lupus Patient has suicidal ideation: No Patient has homicidal ideation: No - Past Medical History Cardiac Medical History: Reports: Hx Hypertension Renal/ Medical History: Denies: Hx Peritoneal Dialysis Surgical Hx: Negative - Immunizations Immunizations up to date: Yes Hx Diphtheria, Pertussis, Tetanus Vaccination: Yes Vertical Provider Document - CONSTITUTIONAL Notes: PHYSICAL EXAMINATION: GENERAL: Well-appearing, well-nourished and in no acute distress. HEAD: Atraumatic, normocephalic. EYES: Pupils equal round extraocular movements intact, conjunctiva are normal. ENT: Nares patent, mild erythema noted to bilateral tonsils, no tonsillar swelling noted, no exudates noted. No evidence of peritonsillar abscess, uvula midline. NECK: Normal range of motion LUNGS: No respiratory distress Musculoskeletal: Normal range of motion NEUROLOGICAL: Normal speech, normal gait. PSYCH: Normal mood, normal affect. SKIN: Warm, Dry, normal turgor, no rashes or lesions noted. - INFECTION CONTROL TRAVEL OUTSIDE OF THE [place] IN LAST 30 DAYS: No Course - Re-evaluation Re-evalutation: 05/27/18 12:20 Rapid strep is negative. Examination is consistent with viral upper respiratory illness. - Vital Signs Vital signs: Temp Pulse Resp BP Pulse Ox 98.2 F 115 H 14 127/81 H 97 05/27/18 11:00 05/27/18 11:00 05/27/18 11:00 05/27/18 11:00 11/27/18 11:00 Discharge - Discharge Clinical Impression: Sore throat Condition: Stable Disposition: HOME, SELF-CARE Additional Instructions: SORE THROAT: Sore throats may be caused by viruses, bacteria, or fungi. Most are due to a virus, and must get better on their own. Bacterial sore throats, particularly those due to "strep," need treatment with antibiotics. If an antibiotic is prescribed, be sure to take the medication for a full 10 days. Failure to take the antibiotic can result in complications such as rheumatic fever. Sometimes, an injection of antibiotics is given instead of pills or liquid. This single "shot" is equal in effectiveness to the oral medication. To relieve symptoms, take acetaminophen for pain. Sip clear liquids frequently, or eat popsicles or ice chips. Anesthetic sprays or lozenges may help. Make sure the air in the room is not too dry. Avoid using decongestants or antihistamines. Call the doctor if there is no improvement in two days, or if you have difficulty breathing, increasing throat pain, high fever, rash, or frequent vomiting. UPPER RESPIRATORY ILLNESS: You have a viral infection of the respiratory passages -- a "cold." This common infection causes nasal congestion, drainage, and often sore throat and cough. It is highly contagious. The disease usually lasts about 10 to 14 days. There is no "cure" for the viral infection -- it must run its course. If there is a complication, such as bacterial infection in the nose, sinuses, middle ear, or bronchial tubes, antibiotics may be required. The antibiotics won't affect the virus. Drink plenty of fluids. A humidifier may help. An expectorant medication or decongestant may make you more comfortable. Use acetaminophen or ibuprofen for fever or aches. See the doctor if fever persists over two days, if there is any significant worsening of your symptoms, or if you simply fail to improve as expected. INHALED BRONCHODILATORS: You have received a treatment of and/or prescription for an inhaled bronchodilator -- a medication which stimulates the airways in the lung to dilate. This improves the flow of air in asthma, bronchitis, and emphysema. These medicines have some similarity to adrenaline, and can cause similar side effects: shakiness, racing heart, and a sense of nervousness. These side effects decrease with time. Contact your doctor if these side effects are severe. Do not over-use the medicine. Too-frequent use of the inhaler may make it ineffective. Call your doctor if the inhaler is not controlling your symptoms at the prescribed doses. FOLLOW-UP CARE: If you have been referred to a physician for follow-up care, call the physician s office for an appointment as you were instructed or within the next two days. If you experience worsening or a significant change in your symptoms, notify the physician immediately or return to the Emergency Department at any time for re-evaluation. Your rapid strep testing today was negative. Please use good handwashing. Drink plenty of fluids. Take Tylenol or Motrin as needed for pain or fever. You may purchase an over the counter cough and cold medication for some of her symptoms. Follow-up with your primary care provider in the next 3-5 days for follow-up. Return to the emergency department if you develop severe shortness of breath or difficulty breathing. Forms: Return to Work Referrals: LAYNE PLATA MD [Primary Care Provider] - Follow up as needed
[2018-05-27 12:43] VITALS: BP 116/66
== END 2018-05-27 12:42 | disposition home or self-care (01) ==
LOC: ER 10:47
DX: J02.9 Acute pharyngitis, unspecified (principal); R05 Cough; I10 Essential (primary) hypertension
CPT/HCPCS: 87070; 87880; 99283

== ENCOUNTER → 2019-02-27 | Outpatient (CLI) | payer SELFPAY ==
--- NOTE | 2019-02-27 16:13 | RADIOLOGY REPORT (SQ) ---
EXAM DESCRIPTION: U/S OB 14+ TRNABD 1GES W/O DOP COMPLETED DATE/TIME: 02/27/2019 4:01 pm REASON FOR STUDY: Z34.83 ENCOUNTER FOR SUPRVSN OF NORMAL , THIRD TRIMESTER Z34.83 ENCOUNTE R FOR SUPRVSN OF NORMAL , THIRD TRIM COMPARISON: None. TECHNIQUE: Static and Dynamic grayscale imaging performed of gravid uterus using transabdominal appr oach. Additional selected color Doppler and spectral images recorded. All stored on PACS. LIMITATIONS: None. FINDINGS: FETUSES SEEN:1 EGA: 27 weeks 4 days Calculated using BPD,FL,HC,AC documented on images. No discrepancy with clinica l dates. TAIWO: 05/25/2019 EFW: 1,035 grams PERCENTILE: 37th JOAN: 19.1 PLACENTA: Posterior. GRADE: I PRESENTATION: Breech. ANATOMY: HEART RATE: 135 beats per minute. FOUR CHAMBER HEART: Visualized. THREE VESSEL CORD: Yes. CORD INSERTION: Visualized. KIDNEYS AND BLADDER: Visualized. Appear normal. STOMACH: Visualized. Appears normal. SPINE: Normal as visualized. BRAIN AND LATERAL VENTRICLES: Visualized. Appear normal. OTHER: No other significant finding. MATERNAL ADNEXA: Maternal ovaries not visualized. CERVICAL LENGTH: Not measured. OTHER: No other significant finding. IMPRESSION: LIVING INTRAUTERINE . ESTIMATED GESTATIONAL AGE 27 WEEKS 4 DAYS. NO VISUALIZED ANOMALIES. Trimester of : Second trimester - 13 weeks 1 day to 27 weeks 6 days. TECHNICAL DOCUMENTATION: JOB ID: [id number] [employer]- All Rights Reserved Reading location - IP/workstation name: [email or web address]
== END ==
LOC: RAD 15:21
PROVIDERS: ATTEND Midwife
DX: Z34.83 Encounter for supervision of other normal pregnancy, third trimester (principal)
CPT/HCPCS: 76805

== ENCOUNTER 2019-05-20 09:36 | Inpatient (IN) | payer MEDICAID ==
[2019-05-20 10:59] LABS: URINE AMPHETAMINES SCREEN NEGATIVE; URINE BARBITURATES SCREEN NEGATIVE; URINE BENZODIAZEPINES SCREEN NEGATIVE; URINE COCAINE SCREEN NEGATIVE; URINE MARIJUANA (THC) SCREEN NEGATIVE; URINE METHADONE SCREEN NEGATIVE; URINE PHENCYCLIDINE SCREEN NEGATIVE
[2019-05-20 11:00] LABS: APPEARANCE,URINE SLIGHTLY-CLOUDY; BILIRUBIN,URINE NEGATIVE (NEGATIVE); COLOR,URINE YELLOW; GLUCOSE, URINE NEGATIVE (NEGATIVE); KETONES,URINE NEGATIVE (NEGATIVE); LEUKOCYTE ESTERASE,URINE TRACE (NEGATIVE); NITRITE,URINE NEGATIVE (NEGATIVE); PROTEIN,URINE 30 mg/dL (NEGATIVE); URINE SPECIFIC GRAVITY 1.024; UROBILINOGEN,URINE NEGATIVE mg/dL (<2.0)
[2019-05-20] MEDS ORDERED: MISOPROSTOL 0.1 MG TABLET PO ONE (11:11)
[2019-05-20] MEDS ORDERED: OXYTOCIN 10 UNIT/ML VIAL ONE (11:46)
[2019-05-20] MEDS ORDERED: MISOPROSTOL 0.1 MG TABLET ONE (11:47)
[2019-05-20] MEDS ORDERED: OXYTOCIN/NORMAL SALINE 20 UNIT/1,000 ML RTUINJ ONE (11:47)
[2019-05-20] MEDS ORDERED: MISOPROSTOL 0.2 MG TABLET ONE (11:47)
[2019-05-20] MEDS ORDERED: LIDOCAINE 1% INJ-PF (10 MG/ML) 30 ML SDV ONE (11:47)
[2019-05-20 11:54] LABS: ABSOLUTE LYMPHOCYTES (AUTO) 1.2 10^3/uL (0.5-4.7); ABSOLUTE MONOCYTES (AUTO) 0.5 10^3/uL (0.1-1.4); ABSOLUTE NEUT (AUTO) 3.2 10^3/uL (1.7-8.2); BASOPHILS % (AUTO) 0.6 % (0-2); EOSINOPHILS % (AUTO) 0.6 % (0-6); HEMATOCRIT 36.9 % (36.0-47.0); HEMOGLOBIN 12.3 g/dL (12.0-15.5); LYMPHOCYTES % (AUTO) 24.5 % (13-45); MEAN CORPUSCULAR HEMOGLOBIN 28.8 pg (27.0-33.4); MEAN CORPUSCULAR HGB CONC 33.3 g/dL (32.0-36.0); MEAN CORPUSCULAR VOLUME 86 fl (80-97); MONOCYTES % (AUTO) 10.1 % (3-13); PLATELET COUNT 216 10^3/uL (150-450); RED BLOOD COUNT 4.28 10^6/uL (3.72-5.28); RED CELL DISTRIBUTION WIDTH 14.1 % (11.5-14.0); SEGMENTED NEUTROPHILS % (AUTO) 64.2 % (42-78); TOTAL CELLS COUNTED % (AUTO) 100 %
--- NOTE | 2019-05-20 12:24 | Admission Physical ---
Datetime Report Generated by CPN: 05/20/2019 12:24 CURRENT ADMISSION Hx Assessment: The History has been Reviewed and is Current Chief Complaint: Suspected Ruptured Membranes Indication for Induction: PROM Admit Impression : Term, Intrauterine ; Ruptured Membranes Admit Plan: Admit to Unit; Initiate Labor Protocol; Initiate Labor Augmentation Protocol ALLERGIES Medication Allergies: No Medication Allergies: No Known Allergies (05/20/2019) Latex: No Latex Allergies Food Allergies: none Environmental Allergies: none OBSTETRICAL HISTORY EDC: 05/22/2019 00:00 : 3 Para: 2 Term: 2 : 0 SAB: 0 IAB: 0 Ectopic: 0 Livin Cesareans: 0 VBACs: 0 Multiple Births: 0 Gestational Diabetes: No Rh Sensitization: No Incompetent Cervix: No KINDRA: No Infertility: No ART Treatment: No Uterine Anomaly: No IUGR: No Hx Previous C/S: No Macrosomia: No Hx Loss/Stillborn: No PIH: No Hx : No Placenta Previa/Abruption: No Depression/PP Depression: No PTL/PROM: No Post Hemorrhage: No Current Procedures: Ultrasound; NST SEE RECORDS Alcohol: No Marijuana : No Cocaine: No Other Illicit Drugs: No MEDICAL HISTORY Diabetes: No Blood Transfusion: No Pulmonary Disease (Asthma, TB): No Breast Disease: No Hypertension: No Dupligraph Operator Surgery: No Heart Disease: No Hosp/Surgery: No Autoimmune Disorder: No Anesthetic Complications: No Kidney Disease: No Abnormal Pap Smear: No Neuro/Epilepsy: No Psychiatric Disorders: No Other Medical Diseases: No Hepatitis/Liver Disease: No Significant Family History: No Varicosities/Phlebitis: No Trauma/Violence : No Thyroid Dysfunction: No INFECTIOUS HISTORY Gonorrhea: No Genital Herpes: No Chlamydia: No Tuberculosis: No Syphilis: No Hepatitis: No HIV/AIDS Exposure: No Rash or Viral Illness: No HPV: No PHYSICAL EXAM General: Normal Heart: Normal Lungs: Normal Extremities: Normal Pelvic Type: Adequate Physical Exam Comments: pelvis proven to 7lbs 2oz Vital Signs: Reviewed; Within Normal Limits VAGINAL EXAM Dilatation: 1-2 Effacement: 50 Station: -2 Contraction Comments: irregular MEMBRANES Membranes: Ruptured Amniotic Fluid Color: Clear FETUS A EGA: 39.5 Monitoring: External US FHR- Baseline: 125 Variability: Moderate 6-25bpm Accelerations: 15X15 Decelerations: None FHR Category: Category I Presentation: Vertex Admit Comment: 23yo @ 39w2d into L_D with c/o SROM at 0700 today, scant-clear fluid. Pt. is O pos, RI, varicella Non-immune,GBS neg with significant hx of Late entry to care with and incarceration while . Pt. also refused 1hr GTT but hgb a1c wnl. Plan is to augment with cytotec at this time. PLANS FOR LABOR AND DELIVERY Labor and Delivery: None Pain Management: Epidural Feeding Preference: Formula Benefit of Breast Feed Discussed: Yes Circumcision: Yes INFORMED CONSENT Assignment: Jackeline Damon MD Signature: with User ID: [email or web address] : with User ID: [email or web address]
[2019-05-20] MEDS ORDERED: EPHEDRINE SULFATE INJ 50 MG/1 ML AMPULE ONE (21:56)
[2019-05-20] MEDS ORDERED: BUPIVACAINE HCL 0.25 % INJ/PF (2.5 MG/1 ML) 30 ML VIAL ONE (21:57)
[2019-05-20] MEDS ORDERED: FENTANYL/BUPIVACAINE/NS/PF 300 MCG/150 ML RTUINJ EPI ONE (21:57)
[2019-05-21] MEDS ORDERED: LIDOCAINE 2% INJ-PF (20 MG/ML) 10 ML AMPUL ONE ×2 (01:14→01:18)
[2019-05-21] MEDS ORDERED: CEFAZOLIN INJ 1 GM VIAL ONE (01:24)
[2019-05-21] MEDS ORDERED: KETOROLAC TROMETHAMINE 60 MG/2 ML SDV ONE (01:36)
[2019-05-21] MEDS ORDERED: FENTANYL CITRATE INJ/PF 100 MCG/2 ML AMPUL ONE ×2 (01:36→03:17)
[2019-05-21] MEDS ORDERED: ONDANSETRON HCL INJ/PF 4 MG/2 ML SDV ONE (01:36)
[2019-05-21] MEDS ORDERED: FENTANYL CITRATE INJ/PF 100 MCG/2 ML AMPUL IV PRN ×3 (02:04)
[2019-05-21] MEDS ORDERED: DIPHENHYDRAMINE HCL 50 MG/ML VIAL IV PRN (02:04)
[2019-05-21] MEDS ORDERED: OXYCODONE-ACETAMINOPHEN 5-325 MG TABLET PO PRN ×3 (02:04→03:05)
[2019-05-21] MEDS ORDERED: PROMETHAZINE HCL INJ 25 MG/1 ML VIAL IV PRN ×3 (02:04→03:05)
[2019-05-21] MEDS ORDERED: ONDANSETRON HCL INJ/PF 4 MG/2 ML SDV IV PRN (02:04)
[2019-05-21] MEDS ORDERED: MEPERIDINE HCL/PF INJ 25 MG/1 ML DISP.SYRIN IV PRN (02:04)
[2019-05-21] MEDS ORDERED: PROPOFOL INJ 200 MG/20 ML VIAL IV ONE (02:06)
[2019-05-21] MEDS ORDERED: OXYTOCIN/NORMAL SALINE 20 UNIT/1,000 ML RTUINJ ONE (02:30)
[2019-05-21] MEDS ORDERED: MEASLES,MUMPS&RUBELLA VACC/PF 0.5 ML VIAL SUBCUT PRN (03:05)
[2019-05-21] MEDS ORDERED: ACETAMINOPHEN 325 MG TABLET PO PRN (03:05)
[2019-05-21] MEDS ORDERED: HYDROMORPHONE HCL INJ/PF 2 MG/ML AMPULE IV PRN (03:05)
[2019-05-21] MEDS ORDERED: DIPH/PERTUSS(ACELL)/TETANUS VAC/PF 0.5 ML SYR (>=10YO) IM PRN (03:05)
[2019-05-21] MEDS ORDERED: OXYTOCIN/NORMAL SALINE 20 UNIT/1,000 ML RTUINJ IV PRN (03:05)
--- NOTE | 2019-05-21 03:18 | PDOC PROGRESS REPORT ---
Subjective Progress Note for:: 05/21/19 Subjective:: Late entry for approx 0100 Called to patients room just before 0100 and patient was completely dilated. Patient had urge to push. Began pushing and heart rate initially showed late decelerations. Interventions started including stopping pitocin drip, beginning fluid bolus and Oxygen by facemask. She was repositioned with tilt to left side. She was C/C/+2 and vertex with sutures easily palpable. Little movement with maternal effort. Discussed vacuum use to assist and patient agreeable. Vacuum applied 2 cm anterior to the posterior fontanel over the sagital suture. Pulled x2 with maternal effort and one pop off. The positioned as above and second attempt with maternal effort on next contraction. Vacuum popped off. heart rate at this time noted to be in the 60s to 70s with no return to baseline. Resuscitative efforts continued ongoing. Due to sustained bradycardia in the 60-70 range, state section called. Discussed with patient and her . They were in agreement to proceed. RN called nursing supervisor livestock yard and anesthesia. See operative report for details. Reason For Visit: Physical Exam - Physical Exam Vital Signs: Intake & Output 05/19/19 05/20/19 05/21/19 06:59 06:59 06:59 Weight 83.2 kg Result Laboratory Results: 05/20/19 11:30 05/20/19 05/20/19 05/20/19 09:55 11:30 11:30 WBC 5.0 RBC 4.28 Hgb 12.3 Hct 36.9 MCV 86 MCH 28.8 MCHC 33.3 RDW 14.1 H Plt Count 216 Seg Neutrophils % 64.2 Urine Color YELLOW Urine Appearance SLIGHTLY-CLOUDY Urine pH 7.0 Ur Specific [place] 1.024 Urine Protein 30 H Urine Glucose (UA) NEGATIVE Urine Ketones NEGATIVE Urine Blood NEGATIVE Urine Nitrite NEGATIVE Ur Leukocyte Esterase TRACE H Blood Type O POSITIVE Antibody Screen NEGATIVE Assessment & Plan - Time Time Spent with patient: 15-24 minutes
--- NOTE | 2019-05-21 03:24 | PDOC DELIVERY SUMMARY ---
Delivery Summary - Maternal Hx : III Hx Para: II Hx # Term Pregnancies: 2 Hx # Pregnancies: 0 Hx Total # of Abortions (Sponateous & Elective): 0 Number of Living Children: 2 Gestational Age: 39.6 Ruptured Membranes: SROM Fluids: Clear - Delivery Presentation: Vertex Heart Rate Monitoring: Externally Uterine Contraction Monitoring: External Pattern: Late Decels Pattern Other: Bradycardia Support Person Present: Yes Location: OR : Emergency Placenta: Within Normal Limits Nuchal Cord: No Estimated Blood Loss: 700 Delivery Quantitative Blood Loss (QBL): 850 - Medications Type of Anesthesia:: GA - Delivery Personnel RN: Mya MD: ANDRES NAVARRO
[2019-05-21] MEDS ORDERED: ACETAMINOPHEN 1,000 MG/100 ML RTUPB IV PRN (03:27)
[2019-05-21] MEDS ORDERED: ACETAMINOPHEN 1,000 MG/100 ML RTUPB IV ONE (03:29)
--- NOTE | 2019-05-21 03:37 | RADIOLOGY REPORT (SQ) ---
EXAM DESCRIPTION: XR ABDOMEN 1 VIEW (KUB) COMPLETED DATE/TME: 05/21/2019 00:00 CLINICAL HISTORY: 23 years, Female, POST OP , NO COUNT COMPARISON: None. NUMBER OF VIEWS: One TECHNIQUE: AP view the abdomen LIMITATIONS: None. FINDINGS: No radiopaque foreign body is identified. A rectal tube is noted. A large pelvic mass displaces the surrounding bowel, likely representing the uterus. No dilated loops of small bowel are identified. The bones are unremarkable. IMPRESSION: No radiopaque foreign body. copyright 2010 [employer]- All Rights Reserved
--- NOTE | 2019-05-21 03:57 | Warning Signs in Babies ---
VOD Warning Signs Datetime Report Generated by [facility]: 05/21/2019 03:57 VOD#608 -Warning Signs in Babies: Needs to be viewed. (05/20/2019 10:08:Lois Carrillo RN)
--- NOTE | 2019-05-21 03:58 | Operative Report ---
Operative Report DATE OF SURGERY: 05/21/19 PREOPERATIVE DIAGNOSIS: IUP at 39.6 wks EGA. Non-reassuring heart tracin g. bradycardia POSTOPERATIVE DIAGNOSIS: same as above OPERATION: Primary section SURGEON: ANDRES NAVARRO ANESTHESIA: GA TISSUE REMOVED OR ALTERED: Placenta COMPLICATIONS: None ESTIMATED BLOOD LOSS: 700 QUANTITATIVE BLOOD LOSS: 850 INTRAOPERATIVE FINDINGS: NOrmal appearing uterus, bilateral fallopian tubes and ovaries. Clear amniotic fluid. Vertex with apgars of 8 and 9 at one and five minutes PROCEDURE: IV fluids: per anesthesia record Urinary output: 250 cc Findings: Normal-appearing uterus bilateral fallopian tubes and ovaries. Viable male with Apgars of 8 and 9, at 1 and 5 minutes respectively. Position: To recovery room in stable condition Description of procedure: The patient was taken to the operating room where she was placed on the OR table in the supine position with a slight leftward tilt. General anesthesia was administered and found to be adequate.Patient was prepped and draped with be tadine prep in a sterile fashion. Ancef 2 gms was given IV prior to the procedure for infection prophylaxis. Timeout was taken. A Pfannenstiel skin incision was then made approximately 3 cm above the pubic symphysis and carried down to level the rectus fascia. The rectus fascia was then nicked in the midline with a scalpel and the fascial incision was extended laterally with use of curved Del Toro scissors. The rectus muscles were then mannually split. THe peritoneum was entered with hemostats x2 and manually stretched. The bladder blade was positioned. The bladder was noted to be out of harm's way. A scalpel was then used in the lower uterine for the hysterotomy, slowly until amniotomy was obtained a large amount of fluid was noted. The uterine incision was then manually stretched. The was noted to be in vertex postion -deep in the pelvis. Using a hand deep in pelvis, and assistance from RN from below, the head was elevated and brought to the hysterotomy incision. The head then delivered with minmal difficulty. The shoulders and the rest of the body followed immediately. The cord was cut clamped and the was handed off to the nurse awaiting. Infant was crying prior to hand off. The placenta was manually delivered. Using a lap gauze the uterus was cleared of all clots and debris. The uterus was then exteriorized and a bladder blade was repositioned. The uterine incision was then closed with 0 Chromic suture in a running locked fashion. A second layer of the same suture was used in a running locked imbricated fashion. The uterine incision was inspected and noted to be hemostatic. The posterior aspect of the uterus was then inspected and anatomy was seen as above. The uterus was returned to its normal anatomic position within the abdominal cavity. Warm saline irrigation was used to clear all clots and debris from the abdomen. The uterine incision was inspected once more and noted to remain hemostatic. The bladder blade was removed and the peritoneum was closed with 2-0 chromic in a running fashion. The rectus muscles were then reapproximated and the rectus fascia was closed with a #0 PDS in a running fashion. The subcutaneous tissue was then inspected and any bleeding was controlled with Bovie electrocautery. The subcutaneous tissue was then closed with 2-0 Plain Gut suture in a running fashion. The skin was then closed with 3-0 Monocryl in a ru nning subcuticular fashion. The skin incision was then clean dried and Dermabond was applied over the skin incision. All instrument sponge and needle counts were correct x3 for the procedure the patient tolerated the procedure well. KUB obtained to check instrument count as inital count not done. KUB negative. She will proceed to recovery room in stable condition
[2019-05-21] MEDS ORDERED: MORPHINE SULFATE 10 MG/ML INJ ONE (04:00)
[2019-05-21] MEDS: MORPHINE SULFATE 10 MG/ML INJ IV PRN ×2 (04:04→04:21)
[2019-05-21] MEDS: RINGERS SOLUTION,LACTATED 1,000 ML IV PRN ×2 (05:53→14:31)
--- NOTE | 2019-05-21 05:56 | Delivery Summary ---
Del Sum A-C Datetime Report Generated by CPN: 05/21/2019 05:56 DELIVERY PERSONNEL DELIVERY PERSONNEL: [id number] Delivery Doctor:: Jackeline Damon MD Anesthesiologist:: Ed Scott MD REIMBURSEMENT REP:: Naomi Cedeno CRNA Labor and Delivery Nurse:: Lois Carrillo RNrigger chief Nurse:: Ilan Carmona RN Biology Lecturer:: Lois Carrillo RN Neonatal Nurse Practitioner:: JEFFREY Pimentel Nursery Nurse:: Maite Navarrete RN MSN Nursery Nurse:: Vilma Ames RN Home Assessment Nurse/ELECTRONIC IMAGING SYSTEM OPERATOR: [facility] Home Assessment Nurse/ELECTRONIC IMAGING SYSTEM OPERATOR: Asya Ortiz CNA II MATERNAL INFORMATION Delivery Anesthesia: Epidural; General Medications After Delivery: Pitocin Bolus-Please Comment Meds After Delivery Comment: Pitocin 20 units/1000 ml NSS x2 Delivery QBL: 859 Maternal Complications: None LABOR SUMMARY EDC: 05/22/2019 00:00 No. Babies in Womb: 1 Attempted: No Labor Anesthesia: Epidural LABOR INFORMATION Reason for Induction: Not Applicable Onset of Labor: 05/20/2019 07:00 Complete Dilatation: 05/21/2019 00:48 Cervical Ripening Agents: Cytotec @ 0.025mcg Oxytocin: Augmentation Group B Beta Strep: NEGATIVE Antibiotics # of Doses: 1 Antibiotics Time of Last Dose: 0128 Name of Antibiotic Given: ANCEF Steroids Given: None Reason Steroids Not Administered: Not Applicable MEMBRANES Membranes Rupture Method: Spontaneous Rupture of Membranes: 05/20/2019 07:00 Length of Rupture (hr): 18.50 Amniotic Fluid Color: Clear Amniotic Fluid Amount: None Amniotic Fluid Odor: Normal STAGES OF LABOR Stage 1 hr: 17 Stage 1 min: 48 Stage 2 hr: 0 Stage 2 min: 42 Stage 3 hr: 0 Stage 3 min: 1 Total Time in Labor hr: 18 Total Time in Labor min: 31 VAGINAL DELIVERY Episiotomy: None Laceration #1: None Laceration Extension #1: N/A Laceration Repair: Not Applicable Sponge Count Correct: N/A CSECTION DELIVERY Primary Indication: Nonreassuring Status Secondary Indication: N/A CSection Urgency: Emergency CSection Incidence: Primary Labor: Labor Elective: N/A CSection Incision: Lower Uterine Transverse BABY A INFORMATION Delivery Date/Time: 05/21/2019 01:30 Method of Delivery: Born in Route : No : N/A Forceps: N/A Vacuum Extraction: Failed Shoulder Dystocia : No PRESENTATION/POSITION BABY A Presentation: Cephalic PLACENTA INFORMATION BABY A Placenta Delivery Time : 05/21/2019 01:31 Placenta Method of Delivery: Manual Removal Placenta Status: Delivered SCORES BABY A Heart Rate 1 min: >100 bpm Resp Effort 1 min: Good Cry Reflex Irritability 1 min: Cough or Sneeze or Pulls Away Muscle Tone 1 min: Active Motion Color 1 min: Blue/Pale Resuscitation Effort 1 min: Tactile Stimulation SCORE 1 MIN: 8 Heart Rate 5 min: >100 bpm Resp Effort 5 min: Good Cry Reflex Irritability 5 min: Cough or Sneeze or Pulls Away Muscle Tone 5 min: Active Motion Color 5 min: Body [place], Extremities Blue Resuscitation Effort 5 min: Tactile Stimulation SCORE 5 MIN: 9 INFORMATION BABY A Gestational Age at Delivery: 39.6 Gestational Status: Full Term- 39- 40.6 Weeks Outcome : Liveborn Infant Condition : Stable Infant Sex: Male IDENTIFICATION BABY A Verification Date/Time: 05/21/2019 01:50 ID Band Number: [id number] Mother's Name Verified: Yes RN Verifying Infant: Dung,RN Additional Verifying Personnel: Catracho,RN WEIGHT/LENGTH BABY A Birthweight (gm): 3465 Infant Weight (lb): 7 Weight (oz): 10 Infant Length (in): 21.50 Length (cm): 54.61 CORD INFORMATION BABY A No. Cord Vessels: 3 Nuchal Cord : N/A Cord Blood Taken: Yes-For Eval (Mom's Blood Type - or O+) Infant Suction: Mouth; Nose ASSESSMENT BABY A Skin to Skin: No BABY B INFORMATION : N/A
--- NOTE | 2019-05-21 05:57 | Delivery Summary ---
Del Sum A-C Datetime Report Generated by CPN: 05/21/2019 05:57 DELIVERY PERSONNEL DELIVERY PERSONNEL: [id number] Delivery Doctor:: Jackeline Damon MD Anesthesiologist:: Ed Scott MD SOCIAL SCIENCES INSTRUCTOR:: Naomi Cedeno CRNA Labor and Delivery Nurse:: Lois Carrillo RNmaterial analyst Nurse:: Ilan Carmona RN Senior Engineering Manager:: Lois Carrillo RN Neonatal Nurse Practitioner:: JEFFREY Pimentel Nursery Nurse:: Maite Navarrete RN MSN Nursery Nurse:: Vilma Ames RN Manager Stylist/PRECISION HONER: [facility] Manager Stylist/PRECISION HONER: Asya Ortiz CNA II MATERNAL INFORMATION Delivery Anesthesia: Epidural; General Medications After Delivery: Pitocin Bolus-Please Comment Meds After Delivery Comment: Pitocin 20 units/1000 ml NSS x2 Delivery QBL: 859 Maternal Complications: None LABOR SUMMARY EDC: 05/22/2019 00:00 No. Babies in Womb: 1 Attempted: No Labor Anesthesia: Epidural LABOR INFORMATION Reason for Induction: Not Applicable Onset of Labor: 05/20/2019 07:00 Complete Dilatation: 05/21/2019 00:48 Cervical Ripening Agents: Cytotec @ 0.025mcg Oxytocin: Augmentation Group B Beta Strep: NEGATIVE Antibiotics # of Doses: 1 Antibiotics Time of Last Dose: 0128 Name of Antibiotic Given: ANCEF Steroids Given: None Reason Steroids Not Administered: Not Applicable MEMBRANES Membranes Rupture Method: Spontaneous Rupture of Membranes: 05/20/2019 07:00 Length of Rupture (hr): 18.50 Amniotic Fluid Color: Clear Amniotic Fluid Amount: None Amniotic Fluid Odor: Normal STAGES OF LABOR Stage 1 hr: 17 Stage 1 min: 48 Stage 2 hr: 0 Stage 2 min: 42 Stage 3 hr: 0 Stage 3 min: 1 Total Time in Labor hr: 18 Total Time in Labor min: 31 VAGINAL DELIVERY Episiotomy: None Laceration #1: None Laceration Extension #1: N/A Laceration Repair: Not Applicable Sponge Count Correct: N/A CSECTION DELIVERY Primary Indication: Nonreassuring Status Secondary Indication: N/A CSection Urgency: Emergency CSection Incidence: Primary Labor: Labor Elective: N/A CSection Incision: Lower Uterine Transverse BABY A INFORMATION Delivery Date/Time: 05/21/2019 01:30 Method of Delivery: Born in Route : No : N/A Forceps: N/A Vacuum Extraction: Failed Shoulder Dystocia : No PRESENTATION/POSITION BABY A Presentation: Cephalic PLACENTA INFORMATION BABY A Placenta Delivery Time : 05/21/2019 01:31 Placenta Method of Delivery: Manual Removal Placenta Status: Delivered SCORES BABY A Heart Rate 1 min: >100 bpm Resp Effort 1 min: Good Cry Reflex Irritability 1 min: Cough or Sneeze or Pulls Away Muscle Tone 1 min: Active Motion Color 1 min: Blue/Pale Resuscitation Effort 1 min: Tactile Stimulation SCORE 1 MIN: 8 Heart Rate 5 min: >100 bpm Resp Effort 5 min: Good Cry Reflex Irritability 5 min: Cough or Sneeze or Pulls Away Muscle Tone 5 min: Active Motion Color 5 min: Body [place], Extremities Blue Resuscitation Effort 5 min: Tactile Stimulation SCORE 5 MIN: 9 INFORMATION BABY A Gestational Age at Delivery: 39.6 Gestational Status: Full Term- 39- 40.6 Weeks Outcome : Liveborn Infant Condition : Stable Infant Sex: Male IDENTIFICATION BABY A Verification Date/Time: 05/21/2019 01:50 ID Band Number: [id number] Mother's Name Verified: Yes RN Verifying Infant: Dung,RN Additional Verifying Personnel: Catracho,RN WEIGHT/LENGTH BABY A Birthweight (gm): 3465 Infant Weight (lb): 7 Weight (oz): 10 Infant Length (in): 21.50 Length (cm): 54.61 CORD INFORMATION BABY A No. Cord Vessels: 3 Nuchal Cord : N/A Cord Blood Taken: Yes-For Eval (Mom's Blood Type - or O+) Infant Suction: Mouth; Nose ASSESSMENT BABY A Skin to Skin: No BABY B INFORMATION : N/A
[2019-05-21] MEDS ORDERED: CEFAZOLIN 1 GM/D5W RTU 1 GM/50 ML RTUPB IV SCH (06:00)
[2019-05-21] MEDS: OXYCODONE-ACETAMINOPHEN 5-325 MG TABLET PO PRN ×4 (07:50→22:08)
[2019-05-21] MEDS: IBUPROFEN 800 MG TABLET PO SCH ×3 (08:06→17:43)
--- NOTE | 2019-05-21 09:16 | PDOC PROGRESS REPORT ---
Subjective-OB Progress Note for:: 05/21/19 Physical Exam (OB) Vital Signs: Temp Pulse Resp BP Pulse Ox 98.4 F 78 16 115/64 99 05/21/19 07:59 05/21/19 07:59 05/21/19 07:59 05/21/19 07:59 05/21/19 07:59 Intake & Output 05/20/19 05/21/19 05/22/19 06:59 06:59 06:59 Output Total 1125 Balance -1125 Weight 83.2 kg - Dressing Removed: No Incision: Dressing - Lochia Lochia Amount: Scant < 10 ml Lochia Color: Rubra/Red - Abdomen Description: Tender, Soft, Round Hernia Present: No Bowel Sounds: Normoactive Flatus Presence: Absent Stool: No Fundal Description: Firm Fundal Height: u/u - u/2 Objective-Diagnostic Laboratory: 05/20/19 11:30 05/20/19 05/20/19 05/20/19 09:55 11:30 11:30 WBC 5.0 RBC 4.28 Hgb 12.3 Hct 36.9 MCV 86 MCH 28.8 MCHC 33.3 RDW 14.1 H Plt Count 216 Seg Neutrophils % 64.2 Urine Color YELLOW Urine Appearance SLIGHTLY-CLOUDY Urine pH 7.0 Ur Specific [place] 1.024 Urine Protein 30 H Urine Glucose (UA) NEGATIVE Urine Ketones NEGATIVE Urine Blood NEGATIVE Urine Nitrite NEGATIVE Ur Leukocyte Esterase TRACE H Blood Type O POSITIVE Antibody Screen NEGATIVE
[2019-05-21] MEDS ORDERED: SUCCINYLCHOLINE CHLORIDE INJ 200 MG/10 ML VIAL ONE (09:38)
[2019-05-21] MEDS: PRENATAL VITAMIN W DHA CAPSULE PO SCH (09:39)
[2019-05-21] MEDS: DOCUSATE SODIUM 100 MG CAPSULE PO SCH ×2 (09:39→17:45)
[2019-05-21] MEDS: SIMETHICONE 80 MG TAB.CHEW PO PRN (22:08)
[2019-05-22] MEDS: IBUPROFEN 800 MG TABLET PO SCH ×4 (00:58→17:06)
[2019-05-22] MEDS: OXYCODONE-ACETAMINOPHEN 5-325 MG TABLET PO PRN ×5 (02:14→21:23)
[2019-05-22 06:46] LABS: HEMATOCRIT 34.8 % (36.0-47.0); HEMOGLOBIN 11.8 g/dL (12.0-15.5); MEAN CORPUSCULAR HEMOGLOBIN 29.4 pg (27.0-33.4); MEAN CORPUSCULAR VOLUME 87 fl (80-97); PLATELET COUNT 201 10^3/uL (150-450); RED BLOOD COUNT 4.01 10^6/uL (3.72-5.28); RED CELL DISTRIBUTION WIDTH 13.9 % (11.5-14.0); WHITE BLOOD COUNT 8.4 10^3/uL (4.0-10.5)
[2019-05-22] MEDS: PRENATAL VITAMIN W DHA CAPSULE PO SCH (09:17)
[2019-05-22] MEDS: DOCUSATE SODIUM 100 MG CAPSULE PO SCH ×2 (09:17→17:06)
--- NOTE | 2019-05-22 09:27 | PDOC PROGRESS REPORT ---
Subjective-OB Progress Note for:: 05/22/19 Subjective: Doing well, no c/o, OOB walking, eating and drinking, bottle feeding, not sure if she is having a circ due to money Physical Exam (OB) Vital Signs: Temp Pulse Resp BP Pulse Ox 98.3 F 86 17 126/65 H 97 05/22/19 07:29 05/22/19 07:29 05/22/19 04:25 05/22/19 07:29 05/22/19 04:25 Intake & Output 05/21/19 05/22/19 05/23/19 06:59 06:59 06:59 Intake Total 1150 Output Total 1125 1200 Balance -1125 -50 Weight 83.2 kg - PIH/Pre-Eclampsia DTR's: 1 + Clonus: Negative Headache: Absent Epigastric Pain: No Visual Changes: No - Dressing Removed: Yes Incision: Open, Well Approximated Closure Type: Surgical Glue - Lochia Lochia Amount: Scant < 10 ml Lochia Color: Rubra/Red - Abdomen Description: Soft Hernia Present: No Fundal Description: Firm, Midline Fundal Height: u/u - u/2 Objective-Diagnostic Laboratory: 05/22/19 06:34 05/22/19 06:34 WBC 8.4 RBC 4.01 Hgb 11.8 L Hct 34.8 L MCV 87 MCH 29.4 MCHC 34.0 RDW 13.9 Plt Count 201 Assessment and Plan(PN) - Assessment and Plan (1) Non-reassuring electronic monitoring tracing Is this a current diagnosis for this admission?: Yes (2) Delivery by emergency caesarean section Is this a current diagnosis for this admission?: Yes (3) Normal course Is this a current diagnosis for this admission?: Yes - Time Spent with Patient Time with patient: Less than 15 minutes Medications reviewed and adjusted accordingly: Yes - Disposition Anticipated Discharge: Home Within: within 24 hours
[2019-05-23] MEDS: IBUPROFEN 800 MG TABLET PO SCH ×3 (00:18→13:03)
[2019-05-23] MEDS: OXYCODONE-ACETAMINOPHEN 5-325 MG TABLET PO PRN ×3 (01:26→13:11)
[2019-05-23] MEDS: SIMETHICONE 80 MG TAB.CHEW PO PRN (01:36)
--- NOTE | 2019-05-23 08:23 | PDOC PROGRESS REPORT ---
Subjective-OB Progress Note for:: 05/23/19 Subjective: Doing well, pain seems to be worse at night, during the day ok, walking to nursery, wanted to stay another day because she has no help at home, fob works during the day, gmother had a stroke and cant lift and help much, bottle feeding, voiding, passing gas, eating well Physical Exam (OB) Vital Signs: Temp Pulse Resp BP Pulse Ox 98.2 F 90 17 118/67 98 05/23/19 08:00 05/23/19 08:00 05/23/19 08:00 05/23/19 08:00 05/23/19 08:00 Intake & Output 05/22/19 05/23/19 05/24/19 06:59 06:59 06:59 Intake Total 1150 300 Output Total 1200 Balance -50 300 - PIH/Pre-Eclampsia DTR's: 1 + Clonus: Negative Headache: Absent Epigastric Pain: No Visual Changes: No - Dressing Removed: Yes Incision: Open, Well Approximated Closure Type: Surgical Glue - Lochia Lochia Amount: Scant < 10 ml Lochia Color: Rubra/Red - Abdomen Description: Tender, Soft Hernia Present: No Fundal Description: Firm, Midline Fundal Height: u/u - u/2 Objective-Diagnostic Laboratory: 05/22/19 06:34 Assessment and Plan(PN) - Assessment and Plan (1) Non-reassuring electronic monitoring tracing Is this a current diagnosis for this admission?: Yes (2) Delivery by emergency caesarean section Is this a current diagnosis for this admission?: Yes (3) Normal course Is this a current diagnosis for this admission?: Yes - Time Spent with Patient Time with patient: Less than 15 minutes Medications reviewed and adjusted accordingly: Yes - Disposition Anticipated Discharge: Home Within: within 24 hours - discussed options for help with baby, fob works during the day so he will be there at night to help
--- NOTE | 2019-05-23 08:28 | PDOC DISCHARGE SUMMARY ---
Impression - Admit/DC Date/PCP Admission Date/Primary Care Provider: 05/20/19 10:48 ANDRES NAVARRO MD Discharge Date: 05/23/19 - Discharge Diagnosis (1) Non-reassuring electronic monitoring tracing Is this a current diagnosis for this admission?: Yes (2) Delivery by emergency caesarean section Is this a current diagnosis for this admission?: Yes (3) Normal course Is this a current diagnosis for this admission?: Yes - Additional Information Resuscitation Status: Full Code Discharge Diet: As Tolerated, Regular Discharge Activity: Activity As Tolerated, No Driving, No Lifting Over 10 Pounds, No Lifting/Push/Pulling, Pelvic Rest Referrals: ANDRES NAVARRO MD [Primary Care Provider] - Prescriptions: Oxycodone HCl/Acetaminophen [Percocet 5-325 mg Tablet] 2 tab PO Q4HP PRN #20 tablet PRN Reason: Ibuprofen [Motrin 800 mg Tablet] 800 mg PO Q6 #30 tablet Home Medications: Vit/Dha [ Multi + Dha Capsule] 1 cap PO DAILY #90 capsule 04/14/18 Ibuprofen [Motrin 800 mg Tablet] 800 mg PO Q6 #30 tablet 05/23/19 Oxycodone HCl/Acetaminophen [Percocet 5-325 mg Tablet] 2 tab PO Q4HP PRN #20 tablet 05/23/19 HPI Gestational Age: 39.6 Reason(s) for Admission: PROM Admission Note: Pitocin augmentation, SROM Procedures: NST, Ultrasound Intrapartum Procedure(s): : Low Cervical, Transverse Intrapartum Procedure Note: nonreassuring status Hospital Course Hospital Course: routine post op course Results Laboratory Results: WBC 8.4 10^3/uL (4.0-10.5) 05/22/19 06:34 RBC 4.01 10^6/uL (3.72-5.28) 05/22/19 06:34 Hgb 11.8 g/dL (12.0-15.5) L 05/22/19 06:34 Hct 34.8 % (36.0-47.0) L 05/22/19 06:34 MCV 87 fl (80-97) 05/22/19 06:34 MCH 29.4 pg (27.0-33.4) 05/22/19 06:34 MCHC 34.0 g/dL (32.0-36.0) 05/22/19 06:34 RDW 13.9 % (11.5-14.0) 05/22/19 06:34 Plt Count 201 10^3/uL (150-450) 05/22/19 06:34 Lymph % (Auto) 24.5 % (13-45) 05/20/19 11:30 [place] % (Auto) 10.1 % (3-13) 05/20/19 11:30 Eos % (Auto) 0.6 % (0-6) 05/20/19 11:30 Baso % (Auto) 0.6 % (0-2) 05/20/19 11:30 Absolute Neuts (auto) 3.2 10^3/uL (1.7-8.2) 05/20/19 11:30 Absolute Lymphs (auto) 1.2 10^3/uL (0.5-4.7) 05/20/19 11:30 Absolute Monos (auto) 0.5 10^3/uL (0.1-1.4) 05/20/19 11:30 Absolute Eos (auto) 0.0 10^3/uL (0.0-0.6) 05/20/19 11:30 Absolute Basos (auto) 0.0 10^3/uL (0.0-0.2) 05/20/19 11:30 Seg Neutrophils % 64.2 % (42-78) 05/20/19 11:30 Urine Color YELLOW 05/20/19 09:55 Urine Appearance SLIGHTLY-CLOUDY 05/20/19 09:55 Urine pH 7.0 (5.0-9.0) 05/20/19 09:55 Ur Specific [place] 1.024 05/20/19 09:55 Urine Protein 30 mg/dL (NEGATIVE) H 05/20/19 09:55 Urine Glucose (UA) NEGATIVE mg/dL (NEGATIVE) 05/20/19 09:55 Urine Ketones NEGATIVE mg/dL (NEGATIVE) 05/20/19 09:55 Urine Blood NEGATIVE (NEGATIVE) 05/20/19 09:55 Urine Nitrite NEGATIVE (NEGATIVE) 05/20/19 09:55 Urine Bilirubin NEGATIVE (NEGATIVE) 05/20/19 09:55 Urine Urobilinogen NEGATIVE mg/dL (<2.0) 05/20/19 09:55 Ur Leukocyte Esterase TRACE (NEGATIVE) H 05/20/19 09:55 Urine Ascorbic Acid NEGATIVE (NEGATIVE) 05/20/19 09:55 Membranes Rupture POSITIVE (NEGATIVE) H 05/20/19 09:55 Urine Opiates Screen NEGATIVE 05/20/19 09:55 Urine Methadone Screen NEGATIVE 05/20/19 09:55 Ur Barbiturates Screen NEGATIVE 05/20/19 09:55 Ur Phencyclidine Scrn NEGATIVE 05/20/19 09:55 Ur Amphetamines Screen NEGATIVE 05/20/19 09:55 U Benzodiazepines Scrn NEGATIVE 05/20/19 09:55 Urine Cocaine Screen NEGATIVE 05/20/19 09:55 U Marijuana (THC) Screen NEGATIVE 05/20/19 09:55 RPR NONREACTIVE (NONREACTIVE) 05/20/19 11:30 Blood Type O POSITIVE 05/20/19 11:30 Antibody Screen NEGATIVE 05/20/19 11:30 Impressions: KUB X-Ray 05/21/19 00:00 IMPRESSION: No radiopaque foreign body. copyright 2011 [employer]- All Rights Reserved [employer] Concerns: pain Plan of Treatment: home with pain meds, alternate motrin and tylenol Goals: no complications Time Spent: Less than 30 Minutes
[2019-05-23] MEDS: DOCUSATE SODIUM 100 MG CAPSULE PO SCH (09:06)
[2019-05-23] MEDS: PRENATAL VITAMIN W DHA CAPSULE PO SCH (09:06)
[2019-05-23 12:43] VITALS: BP 125/76
== END 2019-05-23 15:00 | disposition home or self-care (01) | DRG 788 ==
LOC: LC 09:36 → LR 10:48 → 2S 05-21 04:40
PROVIDERS: ADMIT Obstetrics & Gynecology; ATTEND Obstetrics & Gynecology
PROC: 10D00Z1 Extraction of Products of Conception, Low, Open Approach (ICD-10-PCS; principal; 2019-05-21)
DX: O42.92 Full-term premature rupture of membranes, unspecified as to length of time between rupture and onset of labor (principal); O76 Abnormality in fetal heart rate and rhythm complicating labor and delivery; O66.5 Attempted application of vacuum extractor and forceps; Z3A.39 39 weeks gestation of pregnancy; Z37.0 Single live birth
CPT/HCPCS: 1961; 36415; 59025; 74018; 80307; 81005; 84112; 85025; 85027; 86592; 86850; 86900; 86901; 94760; 94799; J0131; J0330; J0690; J1170; J1885; J2270; J2405; J2590; J2704; J3010; J3490; J7120